=== PATIENT | female | born 1965 | race Caucasian/White ===

== ENCOUNTER 2022-03-26 08:51 | Emergency (ER) | payer OTHER ==
[~2022-03-26] VITALS: Ht 162.6 cm; Wt 78.0 kg
--- NOTE | 2022-03-26 09:01 | NUR ---
BIB FAMILY W/ C/O R KNEE, FACIAL, AND BACK OF THE HEAD PAIN S/P GLF, -LOC. TO ER BED 1.
--- NOTE | 2022-03-26 09:05 | NUR ---
REceived pt 56yrs female accompany by lauren came from home s/p trip and fall down this morning c/o pain forhaed no loss of conciose resting at this time
--- NOTE | 2022-03-26 09:05 | NUR ---
DR GUNDERSON AT BEDSIDE FOR EVAL
[2022-03-26] MEDS ORDERED: KETOROLAC TROMETHAMINE INJ 30 MG/ML VIAL ONE (09:13)
--- NOTE | 2022-03-26 09:16 | NUR ---
PT TAKEN TO RADIOLOGY
[2022-03-26] MEDS ORDERED: KETOROLAC TROMETHAMINE INJ 30 MG/ML VIAL IM ONE (09:30)
--- NOTE | 2022-03-26 09:35 | NUR ---
BACK from CT SSCAN DONE X-RAY ON RT KNEE AT BED SIDE
[2022-03-26] MEDS ORDERED: CYCL5TAB PO (10:14)
[2022-03-26] MEDS ORDERED: KETO10TA2 PO (10:14)
[2022-03-26 10:25] VITALS: BP 138/76
--- NOTE | 2022-03-26 10:25 | NUR ---
Patient discharged to home in stable condition. Written and verbal after care instructions given. Patient verbalizes understanding of instruction.
== END 2022-03-26 10:26 | disposition home or self-care (01) ==
LOC: ER 09:03
DX: S13.4XXA Sprain of ligaments of cervical spine, initial encounter (principal); S80.01XA Contusion of right knee, initial encounter; S09.90XA Unspecified injury of head, initial encounter; I10 Essential (primary) hypertension; Z88.8 Allergy status to other drugs, medicaments and biological substances; Z79.899 Other long term (current) drug therapy; W01.0XXA Fall on same level from slipping, tripping and stumbling without subsequent striking against object, initial encounter; Y93.89 Activity, other specified; Y92.89 Other specified places as the place of occurrence of the external cause; Y99.8 Other external cause status
CPT/HCPCS: 99284; 72125; 96372; 73564; 70450; J1885